=== PATIENT | male | born 1975 | race Caucasian/White ===

== ENCOUNTER 2016-11-29 16:22 | Emergency (ER) | payer SELFPAY ==
[~2016-11-29] VITALS: Ht 172.7 cm; Wt 90.7 kg
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
[2016-11-29 18:33] VITALS: BP 133/79
--- OUTSIDE RECORDS SUMMARY | 2016-12-22 06:26 | External Medical Summary Rpt ---
Author Author , PHUONG Organization [facility] Address Unknown Phone [email or web address] Care Team Providers Care Senior Maintenance Technician Name Role Phone KYRGYZ AMBULETTE Unavailable Unavailable AND AMBUL, KYRGYZ AMBULETTE AND AMBUL BEINEKE HANY, BEINEKE Unavailable Unavailable HANY ROYAL L, ROYAL L Unavailable Unavailable FAUGHN WONG, FAUGHN Unavailable Unavailable WONG BINH JOANNA, BINH Unavailable Unavailable [facility] Unavailable Unavailable [facility], [facility], Unavailable Unavailable [facility] Unavailable Unavailable [facility], [facility] SHASHI KEVIN, SHASHI KEVIN Unavailable Unavailable [facility] Unavailable Unavailable [facility], [facility] Unavailable Unavailable [facility], [facility] Unavailable Unavailable INTERNAL MED, [facility] PERRY OSCAR, PERRY Unavailable Unavailable [facility] Unavailable Unavailable SERVICES, [facility] Unavailable Unavailable MED[facility], [facility], Unavailable Unavailable [facility], [facility], [facility] T[facility]MY BAR, TAMMY Unavailable Unavailable [facility] PETTEY JAM, PETTEY Unavailable Unavailable JAM PORNOY ANITA, PORNOY Unavailable Unavailable ANITA STEVE PETERS Unavailable Unavailable [facility] Unavailable Unavailable [facility], [facility] Unavailable Unavailable [facility], [facility] UNIQUE ANNAMARIE, UNIQUE Unavailable Unavailable ANNAMARIE STEYN PIE, STEYN PIE Unavailable Unavailable [facility], Unavailable Unavailable [facility], [facility] Unavailable Unavailable SUZIE JOANNA, SUZIE Unavailable Unavailable [facility] CHATMAN RAY, CHATMAN Unavailable Unavailable RAY CHATMAN RAY, CHATMAN Unavailable Unavailable RAY ALBA CURTIS, ALBA Unavailable Unavailable JR CURTIS Purpose Continuity of Care Document - 05-29-2011 through 2016 Problems Code Diagnosis DOS Provider Status [id number] DISPL FX 02-12-2015 [facility] MALLEOLUS IMAGING ASS LT FIB SUBS CLOS FX RTN [id number] OTH FX 02-12-2015 [facility] LOWER LT INC FIB SUBSQT CLOS RTN HEAL [id number] OTH FX 02-12-2015 [facility] FIB SUBSQT CLOS FX DLAY 35088 CLOSED 11-28-2014 [facility] FRACTURE OF HOME MEDICAL UNSPECIFIED EQUIPME PART OF FIBULA V5416 AFTERCARE 11-28-2014 [facility]ALING [facility] TRAUMATIC INC FRACTURE LOWER LEG 60808 DEHYDRATION 10-29-2014 [facility] 586 UNSPECIFIED 10-29-2014 [facility] FAILURE INTERNAL MED 7802 SYNCOPE AND 10-29-2014 [facility] COLLAPSE DOW INTERNAL MED 8248 UNSPECIFIED 10-25-2014 [facility]OS[facility] PHYSICIANS FRACTURE OF GROUP ANKLE 60720 PAIN IN 10-22-2014 [facility], MEDICAL ANKLE AND IMAGING ASS FOOT 8242 CLOSED 10-22-2014 [facility] FRACTURE OF PHYSICIANS, LATERAL PLLC MALLEOLUS 5849 ACUTE 10-03-2014 [facility], FAILURE PLLC UNSPECIFIED 9925 HEAT 10-03-2014 [facility] EXHAUSTION, PHYSICIANS, PLLC UNSPECIFIED 8730 OPEN WOUND 09-06-2014 [facility]P [facility] WITHOUT INC MENTION COMPLICATIO N V5832 ENCOUNTER 09-06-2014 [facility] FOR REMOVAL MEM HOSP OF SUTURES INC 61670 HEAD 09-01-2014 [facility] JOANNA INJURY, UNSPECIFIED 77797 CLOSED 07-14-2011 [facility] UNSPEC PART LOWER END HUMERUS V5489 OTHER 07-14-2011 [facility]ARE [facility] V6709 FOLLOW-UP 07-14-2011 [facility] FOLLOWING OTHER SURGERY 66436 PAIN IN 06-17-2011 [facility] MEDICAL V571 OTHER 06-17-2011 [facility] 49135 OPEN 05-31-2011 [facility] OF SERV OLECRANON [facility] PROCESS OF ULNA E9889 INJURY 05-31-2011 [facility] UNSPEC SERV MEANS UNDET [facility] ACC/PRPOSLY INFLICTED V5409 OTH 05-31-2011 [facility] AFTER[facility]ARE [facility] INVOLVING [facility] INTERNAL FIXATION DEVICE 75057 OTHER&UNSPE 05-30-2011 [facility] OPEN SERV FRACTURES [facility] PROXIMAL END ULNA V537 FITTING AND 05-30-2011 [facility] ADJUSTMENT [facility] OF [facility] ORTHOPEDIC DEVICE 95322 CLOSED 05-29-2011 [facility] FRACTURE OF EMERGENCY OLECRANON SERVICES PROCESS OF ULNA 51686 CLOSED 05-29-2011 CHATMAN RAY FRACTURE OF CORONOID PROCESS OF ULNA 44520 OTHER&UNSPE 05-29-2011 [facility] CLOSED SERV FRACTURES [facility] PROXIMAL END ULNA 30768 CLOSED 05-29-2011 CHATMAN RAY FRACTURE OF HEAD OF RADIUS 9592 INJURY 05-29-2011 [facility] OTHER&UNSPE SERV CIFIED [facility] SHOULDER&UP PER ARM E8849 OTHER 05-29-2011 [facility] ACCIDENTAL [facility] FALL FROM [facility] ONE LEVEL TO ANOTHER Procedures Procedure DOS Code Location Performer Comment RADEX 31980 [facility] ANKLE [facility] COMPLETE INC INC MINIMUM 3 VIEWS RADEX 08454 [facility] ANKLE [facility] COM[facility]TE INC INC MINIMUM 3 VIEWS RADEX 29069 [facility] ANKLE 5 [facility] COMPLETE INC INC MINIMUM 3 VIEWS WALKING L4360 [facility] ENNIS BOOT 5 HOME HOME PNEUMATC MEDICAL MEDICAL &/ VACUUM EQUIPME EQUIPME PREFAB CUSTM FIT RADEX 46167 [facility] ANKLE 5 [facility] COMPLETE INC INC MINIMUM 3 VIEWS APPLICATI 30204 [facility] ON SHORT 5 PHYSICIAN JAM LEG CAST S GROUP BELOW KNEE-TOE CAST Q4038 [facility] SUPPLIES 5 PHYSICIAN JAM SHORT LEG S GROUP CAST ADULT FIBERGLAS S CAST Q4038 [facility] PETTE[facility] SUPPLIES 5 PHYSICIAN JAM SHORT LEG S GROUP CAST ADULT FIBERGLAS S APPLICATI 18546 [facility] ON SHORT 5 PHYSICIAN JAM LEG CAST S GROUP BELOW KNEE-TOE RADEX 53151 [facility] ANKLE 5 [facility] COMPLETE INC INC MINIMUM 3 VIEWS COLLECTIO 68062 [facility] N VENOUS 5 [facility] BLOOD INC INC VENIPUNCT URE BASIC 81568 [facility] METABOLIC 5 [facility] PANEL INC INC CALCIUM TOTAL CAST Q4046 [facility] SUPPLIES 5 PHYSICIAN JAM SHORT LEG S GROUP SPLINT ADULT FIBERGLAS S CLTX DSTL 65580 [facility] FIBULAR 5 PHYSICIAN JAM FX LAT S GROUP MALLS W/O MANJ RADIOLOGI 51222 [place] BEINEKE C 5 MEDICAL HANY EXAMINATI IMAGING ON TIBIA ASS & FIBULA 2 VIEWS RADEX 90830 ANDERS RODRIGUEZ ANKLE 5 MEDICAL HANY COMPLETE IMAGING MINIMUM 3 ASS VIEWS SIMPLE 73079 [facility] REPAIR 5 [facility] SCALP/NEC INC INC K/AX/GURVINDER T/TRUNK 2.5CM/< UNCLASSIF J3490 [facility] IED DRUGS 5 MEM HOS[facility]OS[facility] INC INC RADEX 95332 UNIVERS UNIVERS ELBOW 2 Y Y COMPLETE [facility] MINIMUM 3 VIEWS THERAPEUT 25939 MEADOWVIE MEADOWVIE IC PX 1/> 2 W W AREAS REGIONAL REGIONAL EACH 15 MEDICAL MEDICAL MIN EXERCISES PHYSICAL 68366 MEADOWVIE MEADOWVIE THERAPY 2 W W EVALUATIO REGIONAL [place] [address] COMPA CHATMAN RADIAL 2 BONIFACIO HEAD/NECK FRACTURE OPEN 99100 COMPA CHATMAN TREATMENT 2 BONIFACIO ULNAR FRACTURE PROXIMAL END ANES 68397 [place] ZAYRA PIE OPEN/SURG 2 MEDICAL SERV ARTHROSCO FOUND[facility] PIC ELBOW PROC NOS RADEX 77655 [place] SHASHI KEVIN ELBOW 2 MEDICAL COMPLETE SERV MINIMUM 3 FOUNDATIO VIEWS DBRDMT 18410 COMPA CHATMAN FX&/DISLC 2 BONIFAC[place] SUBQ T/[place] [address] COMPA CHATMAN MONTEGGIA 2 BONIFACIO FRACTURE DISLOCATI ON ELBOW CT UPPER 56859 [place] UNIQUE EXTREMITY 2 MEDICAL ANNAMARIE W/O SERV CONTRAST [facility] MATERIAL RADEX 02403 [place] SUZIE ELBOW 2 MEDICAL JOANNA COMPLETE SERV MINIMUM 3 FOUNDATIO VIEWS RADEX 11298 [place] PAWLEY ELBOW 2 MEDICAL BAR COMPLETE SERV MINIMUM 3 FOUNDATIO VIEWS N RADEX 84717 [place] TAMMY HUMERUS 2 MEDICAL BAR MINIMUM 2 SERV VIEWS FOUNDATIO N RADEX 81852 [place] TAMMY FOREARM 2 2 MEDICAL BAR VIEWS SERV FOUNDATIO N APPLICATI 13473 [facility] BASHIRVERONICAChristy ON LONG 2 EMERGENCY ANITA ARM SERVICES SPLINT SHOULDER HAND DBRDMT 57026 COMPA CHATMAN FX&/DISLC 2 BONIFACIO SUBQ T/M/F BONE ANES 54897 [place] REBEL TIFFANI ARTHRS/EN 2 MEDICAL DSCPY SERV DSTL FOUNDAT[facility] RADIUS ULNA/WRIS T/HAND RADEX 78050 [place] TAMMY ELBOW 2 2 MEDICAL BAR VIEWS SERV FOUNDATIO N GROUND A0425 KYRGYZ KYRGYZ MILEAGE 2 AMBULETTE AMBULETTE PER AND AND STATUTE AMBUL AMBUL MILE Encounters Encounter Start End Date Code Location Performer Type Date [facility] DENA - 5 5 [facility] OUTPATIEN [facility] OFFICE 84398 [facility] OUTPATIEN 5 5 PHYSICIAN DANNI VISIT S GROUP 15 MINUTES HOSPITAL DENA - 5 5 [facility] DE[facility] - 5 5 [facility] DENA [facility] 5 5 [facility] - 5 5 [facility] DE[facility] - 5 5 [facility] INITIAL 11161 [facility] 5 5 [facility] INTERNAL MEDICINE MED NEW PATIENT 40-64YRS EMERGENCY 90077 TIM AMADOR 5 5 PHYSICIAN OSCAR ROJAS S, [facility] T VISIT HIGH/URGE NT SEVERITY EMERGENCY 08067 TMI Chu 5 5 PHYSICIAN BOB S, [facility] T VISIT HIGH/URGE NT SEVERITY HOSPITAL DENA - 5 5 [facility] OUTPATI[facility] OFFICE 05252 [facility] OUTPATIEN 5 5 MEM H[facility] T VISIT INC 10 MINUTES HOSPITAL DENA - 5 5 [facility] OUTPATIEN [facility] EMERGENCY 14621 BINH SULLIVAN 5 5 JOANNA JUDITH [facility] T VISIT MODERATE SEVERITY EMERGENCY 29335 DE[facility] 5 5 [facility] T VISIT LOW/MODER SEVERITY [facility] UNIVERSIT - 2 2 Y [facility] - 2 2 W [facility] T MEDICAL EMERGENCY 67146 JOEL WILLIS JR DEPT 2 2 MEDICAL KIRSTEN VISIT SERV HIGH FOUNDATIO SEVERITY& THREAT FUNCJ
--- OUTSIDE RECORDS SUMMARY | 2016-12-22 06:26 | External Medical Summary Rpt ---
Author Author , PHUONG Organization PHUONG Address Unknown Phone [email or web address] Care Team Providers Care Melt House Drag Operator Name Role Phone TURKISH AMBULETTE Unavailable Unavailable AND AMBUL, TURKISH AMBULETTE AND AMBUL RAMÓN FRA, RAMÓN Unavailable Unavailable FRA BEINEKE HANY, BEINEKE Unavailable Unavailable HANY ROYAL L, ROYAL L Unavailable Unavailable JACOBS ALL, JACOBS ALL Unavailable Unavailable CROUCH MARISOL, CROUCH Unavailable Unavailable MARISOL LILLIE TENNILLE, Unavailable Unavailable LILLIE TENNILLE FAUGHN WONG, FAUGHN Unavailable Unavailable WONG BINH JOANNA, BINH Unavailable Unavailable [facility] Unavailable Unavailable INC, [facility], Unavailable Unavailable [facility] Unavailable Unavailable IMAGING [facility], [facility] SHASHI KEVIN, SHASHI KEVIN Unavailable Unavailable [facility] Un[facility], [facility] Un[facility], [facility] Unavailable Unavailable INTERNAL MED, [facility] INTERNAL MED PERRY OSCAR, PERRY Unavailable Unavailable OSCAR [facility] Unavailable Unavailable SERVICES, [facility] Unavailable Unavailable MEDICAL, [facility], Unavailable Unavailable PLL, [facility], [facility] PAWLEY BAR, PAWLEY Unavailable Unavailable BAR PETTEY JAM, PETTEY Unavailable Unavailable JAM PORNOY ANITA, PORNOY Unavailable Unavailable ANITA STEVE PETERS Unavailable Unavailable [facility] Unavailable Unavailable [facility], [facility] Unavailable Unavailable [facility], [facility] UNIQUE ANNAMARIE, UNIQUE Unavailable Unavailable ANNAMARIE STEYN PIE, STEYN PIE Unavailable Unavailable [facility], Unavailable Unavailable [facility], USERY AND Unavailable Unavailable SUZIE JOANNA, SUZIE Unavailable Unavailable JOANNA CHATMAN RAY, CHATMAN Unavailable Unavailable RAY CHATMAN RAY, CHATMAN Unavailable Unavailable RAY YOUNG JR CURTIS, YOUNG Unavailable Unavailable JR KIRSTEN Purpose Continuity of Care Document - 05-29-2011 through 2016 Problems Code Diagnosis DOS Provider Status [id number] DISPL FX 02-12-2015 [place] MEDICAL MALLEOLUS IMAGING ASS LT FIB SUBS CLOS FX RTN [id number] OTH FX 02-12-2015 [facility] LOWER LT INC FIB SUBSQT CLOS RTN HEAL [id number] OTH FX 02-12-2015 [facility] UPPER & PHYSICIANS LOWER LT GROUP FIB SUBSQT CLOS FX DLAY 18564 CLOSED 11-28-2014 [facility] FRACTURE OF HOME MEDICAL UNSPECIFIED EQUIPME PART OF FIBULA V5416 AFTERCARE 11-28-2014 [facility]ING [facility] TRAUMATIC INC FRACTURE LOWER LEG 95514 DEHYDRATION 10-29-2014 [place] ANTHONY INTERNAL MED 586 UNSPECIFIED 10-29-2014 [place] [facility] FAILURE INTERNAL MED 7802 SYNCOPE AND 10-29-2014 [place] COLLAPSE ANTHONY INTERNAL MED 8248 UNSPECIFIED 10-25-2014 [facility] CLOSED PHYSICIANS FRACTURE OF GROUP ANKLE 48930 PAIN IN 10-22-2014 [place] JOINT, MEDICAL ANKLE AND IMAGING ASS FOOT 8242 CLOSED 10-22-2014 TIM FRACTURE OF PHYSICIANS, LATERAL PLLC MALLEOLUS 5849 ACUTE 10-03-2014 [facility], FAILURE PLLC UNSPECIFIED 9925 HEAT 10-03-2014 [facility] EXHAUSTION, PHYSICIANS, PLLC UNSPECIFIED 8730 OPEN WOUND 09-06-2014 [facility]P [facility] WITHOUT INC MENTION COMPLICATIO N V5832 ENCOUNTER 09-06-2014 [facility] FOR REMOVAL [facility] HOS[facility] OF SUTURES INC 04599 HEAD 09-01-[address] [facility] JOANNA INJURY, UNSPECIFIED 82270 CLOSED 07-14-2011 [facility] UNSPEC PART LOWER END HUMERUS V5489 OTHER 07-14-2011 [place] [facility] AFTERCARE [facility]OUND[facility] V6709 FOLLOW-UP 07-14-2011 [facility] FOLLOWING OTHER SURGERY 04107 PAIN IN 06-17-2011 [facility] JOINT, REGIONAL FOREARM MEDICAL V571 OTHER 06-17-2011 [place] PHYSICAL REGIONAL THERAPY MEDICAL 69441 OPEN 05-31-2011 [place] [facility] FRACTURE OF SERV OLECRANON FOUNDATIO PROCESS OF ULNA E9889 INJURY 05-31-2011 [place] [facility] UNSPEC SERV MEANS UNDET F[facility]AT[facility] ACC/PRPOSLY INFLICTED V5409 OTH 05-31-2011 [place] [facility] AFTERCARE SERV INVOLVING [facility] INTERNAL FIXATION DEVICE 56375 OTHER&UNSPE 05-30-2011 [place] [facility] C OPEN SERV FRACTURES [facility] PROXIMAL END ULNA V537 FITTING AND 05-30-2011 [place] [facility] ADJUSTMENT SERV OF [facility]IO ORTHOPEDIC DEVICE 27866 CLOSED 05-29-2011 [facility] FRACTURE OF EMERGENCY OLECRANON SERVICES PROCESS OF ULNA 33823 CLOSED 05-29-2011 CHATMAN RAY FRACTURE OF CORONOID PROCESS OF ULNA 11901 OTHER&UNSPE 05-29-2011 [place] [facility] CLOSED SERV FRACTURES [facility] PROXIMAL END ULNA 96942 CLOSED 05-29-2011 CHATMAN RAY FRACTURE OF HEAD OF RADIUS 9592 INJURY 05-29-2011 [place] MEDICAL OTHER&UNSPE SERV CIFIED [facility]ATION SHOULDER&UP PER ARM E8849 OTHER 05-29-2011 [place] [facility] ACCIDENTAL SERV FALL FROM [facility]OUNDAT[facility] ONE LEVEL TO ANOTHER S01.81XA LACERATION W/O FOREIGN BODY OF OTH PART OF HEAD, INIT ENCNTR S82.63XA DISP FX OF LATERAL MALLEOLUS OF UNSP FIBULA, INIT S82.899A OTH FRACTURE OF UNSP LOWER LEG, INIT FOR CLOS FX Procedures Procedure DOS Code Location Performer Comment RADEX 72194 [place] LILLIE ANKLE 5 MEDICAL [place] COMPLETE IMAGING MINIMUM 3 ASS VIEWS RADEX 27182 [place] JACOBS ALL ANKLE 5 MEDICAL COMPLETE IMAGING MINIMUM 3 ASS VIEWS RADEX 68238 [facility] FERNANDES ANKLE 5 [facility] COMPLETE INC INC MINIMUM 3 VIEWS WALKING L4360 [facility] NENIS BOOT 5 HOME HOME PNEUMATC MEDICAL MEDICAL &/ VACUUM EQUIPME EQUIPME PREFAB CUSTM FIT CAST Q4038 [facility] PETTEY SUPPLIES 5 PHYSICIAN JAM SHORT LEG S GROUP CAST ADULT FIBERGLAS S APPLICATI 63605 [facility] PETTE[facility] ON SHORT 5 PHYSICIAN JAM LEG CAST S GROUP BELOW KNEE-TOE RADEX 56108 [place] JACOBS ALL ANKLE 5 MEDICAL COMPLETE IMAGING MINIMUM 3 ASS VIEWS RADEX 59265 [place] JACOBS ALL ANKLE 5 MEDICAL COMPLETE IMAGING MINIMUM 3 ASS VIEWS CAST Q4038 [facility] PETTEY SUPPLIES 5 PHYSICIAN JAM SHORT LEG S GROUP CAST ADULT FIBERGLAS S APPLICATI 33204 [facility] PETTEY ON SHORT 5 PHYSICIAN JAM LEG CAST S GROUP BELOW KNEE-TOE COLLECTIO 66911 [facility] FERNANDES N VENOUS 5 [facility] BLOOD INC INC VENIPUNCT URE BASIC 89365 [facility] METABOLIC 5 [facility] PANEL INC INC CALCIUM TOTAL CAST Q4046 [facility] PETTEY SUPPLIES 5 PHYSICIAN DANNI SHORT LEG S GROUP SPLINT ADULT FIBERGLAS S CLTX DSTL 07624 [facility] PETTEY FIBULAR 5 PHYSICIAN DANNI FX LAT S GROUP MALLS W/O MANJ RADIOLOGI 36016 [facility] RODRIGUEZ C 5 MEDICAL HANY EXAMINATI IMAGING ON TIBIA ASS & FIBULA 2 VIEWS RADEX 79792 [facility] RODRIGUEZ ANKLE 5 MEDICAL HANY COMPLETE IMAGING MINIMUM 3 ASS VIEWS SIMPLE 32697 [facility] REPAIR 5 [facility] SCALP/NEC INC INC K/AX/GURVINDER T/TRUNK 2.5CM/< UNCLASSIF J3490 [facility] IED DRUGS 5 [facility] INC INC RADEX 23467 JOEL RAMÓN ELBOW 2 MEDICAL FRA COMPLETE SERV MINIMUM 3 FOUNDATIO VIEWS THERAPEUT 02657 enModus MEADOWDole Tian IC PX 1/> 2 W W AREAS REGIONAL REGIONAL EACH 15 MEDICAL MEDICAL MIN EXERCISES PHYSICAL 67929 MEADOKarisma Kidz MEADOWVIE THERAPY 2 W W EVALUATIO REGIONAL [place] [address] COMPA CHATMAN MONTEGGIA 2 BONIFACIO FRACTURE DISLOCATI ON ELBOW DBRDMT 24296 COMPA CHATMAN FX&/DISLC 2 BONIFACIO SUBQ T/M/F BONE RADEX 02837 [place] SHASHI KEVIN ELBOW 2 MEDICAL COMPLETE SERV MINIMUM 3 [place] [address] COMPA CHATMAN RADIAL 2 BONIFACIO HEAD/NECK FRACTURE OPEN 24041 CHATMAN COMPA TREATMENT 2 BONIFACIO ULNAR FRACTURE PROXIMAL END ANES 46149 [place] ZAYRA PIE OPEN/SURG 2 MEDICAL SERV ARTHROSCO FOUNDATIO PIC ELBOW PROC NOS RADEX 30782 [place] SUZIE ELBOW 2 MEDICAL JOANNA COMPLETE SERV MINIMUM [address] UPPER 85259 [place] UNIQUE EXTREMITY 2 MEDICAL ANNAMARIE W/O SERV CONTRAST FOUNDATIO MATERIAL ANES 37469 [place] REBEL TIFFANI ARTHRS/EN 2 MEDICAL DSCPY SERV DSTL FOUNDATIO RADIUS ULNA/WRIS T/HAND RADEX 21641 JOEL MUNOZ ELBOW 2 MEDICAL BAR COMPLETE SERV MINIMUM 3 FOUNDATIO VIEWS N DBRDMT 14094 COMPA CHATMAN FX&/DISLC 2 BONIFACIO SUBQ T/M/F BONE GROUND A0425 TURKISH TURKISH MILEAGE 2 AMBULETTE AMBULETTE PER AND AND STATUTE AMBUL AMBUL MILE APPLICATI 25377 [facility] MEJIA ON LONG 2 EMERGENCY ANITA ARM SERVICES SPLINT SHOULDER HAND RADEX 58016 JOEL MUNOZ HUMERUS 2 MEDICAL BAR MINIMUM 2 SERV VIEWS FOUNDATIO N RADEX 52483 MIKO CROUCH FOREARM 2 2 [facility] VIEWS RADEX 64279 MIKO CROUCH ELBOW 2 2 [facility] VIEWS Encounters Encounter Start End Date Code Location Performer Type Date OFFICE 80795 [facility] HUGO SAM 5 5 PHYSICIAN DANNI T VISIT S GROUP 15 MINUTES HOSPITAL DENA - 5 5 [facility] DE[facility] - 5 5 [facility] - 5 5 [facility] - 5 5 [facility] - 5 5 [facility] - 5 5 [facility] 90861 [place]ERY AND PREVENTIV 5 5 [facility] INTERNAL MEDICINE MED NEW PATIENT 40-64YRS EMERGENCY 70457 TIM AMADOR 5 5 PHYSICIAN OSCAR Ho [facility] T VISIT HIGH/URGE NT SEVERITY EMERGENCY 48427 TIM Chu 5 5 PHYSICIAN BOB Ho [facility] T VISIT HIGH/URGE NT SEVERITY OFFICE 28706 [facility] FUENTESEN 5 5 MEM HOS[facility] T VISIT INC 10 MINUTES HOSPITAL DENA - 5 5 [facility] 5 5 [facility] 30173 BINH SULLIVAN 5 5 JOANNA [facility] VISIT MODERATE SEVERITY EMERGENCY 88101 [facility] 5 5 [facility] VISIT LOW/MODER SEVERITY [facility] UNIVERSIT - 2 2 [facility] 2 [facility] MEDICAL EMERGENCY 56823 JOEL WILLIS JR DEPT 2 2 MEDICAL KIRSTEN VISIT SERV HIGH FOUNDATIO SEVERITY& THREAT FUNJ
--- OUTSIDE RECORDS SUMMARY | 2016-12-22 06:26 | External Medical Summary Rpt ---
Author Author , PHUONG Organization [facility] Address Unknown Phone [email or web address] Care Team Providers Care Barber Or Beauty Shop Manager Name Role Phone GUAMANIAN AMBULETTE Unavailable Unavailable AND AMBUL, GUAMANIAN AMBULETTE AND AMBUL BEINEKE HNAY, BEINEKE Unavailable Unavailable HANY ROYAL L, ROYAL L Unavailable Unavailable FAUGHN WONG, FAUGHN Unavailable Unavailable WONG BINH JOANNA, BINH Unavailable Unavailable [facility] Un[facility] Unavailable INC, [facility], Unavailable Unavailable [facility] Unavailable Unavailable IMAGING ASS, [facility] SHASHI KEVIN, SHASHI KEVIN Unavailable Unavailable [facility] Un[facility]available [facility] Un[facility], [facility] Unavailable Unavailable INTERNAL MED, [facility] PERRY OSCAR, PERRY Unavailable Unavailable [facility] Unavailable Unavailable SERVICES, [facility] Unavailable Unavailable MEDICAL, [facility] MEDICAL [facility], Unavailable Unavailable [facility], [facility], [facility] TAM[facility] BAR, TAMMY Unavailable Unavailable BAR PETTEY JAM, PETTEY Unavailable Unavailable JAM PORNOY ANITA, PORNOY Unavailable Unavailable ANITA STEVE PETERS Unavailable Unavailable [facility] Unavailable Unavailable [facility], [facility] Unavailable Unavailable [facility], [facility] UNIQUE ANNAMARIE, UNIQUE Unavailable Unavailable ANNAMARIE STEYN PIE, STEYN PIE Unavailable Unavailable [facility], Unavailable Unavailable [facility] USERY AND, USERY AND Unavailable Unavailable SUZIE JOANNA, SUZIE Unavailable Unavailable JOANNA CHATMAN RAY, CHATMAN Unavailable Unavailable RAY CHATMAN RAY, CHATMAN Unavailable Unavailable RAY ALBA CURTIS, ALBA Unavailable Unavailable JR CURTIS Purpose Continuity of Care Document - 05-29-2011 through 2016 Problems Code Diagnosis DOS Provider Status [id number] DISPL FX 02-12-2015 [facility] MALLEOLUS IMAGING ASS LT FIB SUBS CLOS FX RTN [id number] OTH FX 02-12-2015 [facility] LOWER LT INC FIB SUBSQT CLOS RTN HEAL [id number] OTH FX 02-12-2015 [facility] UPPER & PHYSICIANS LOWER LT GROUP FIB SUBSQT CLOS FX DLAY 05286 CLOSED 11-28-2014 [facility] FRACTURE OF HOME MEDICAL UNSPECIFIED EQUIPME PART OF FIBULA V5416 AFTERCARE 11-28-2014 [facility] TRAUMATIC INC FRACTURE LOWER LEG 98562 DEHYDRATION 10-29-2014 [place] [facility] INTER[facility] MED 586 UNSPECIFIED 10-29-2014 [place] [facility] FAILURE INTERNAL MED 7802 SYNCOPE AND 10-29-2014 [place] COLLAPSE [place] INTERNAL MED 8248 UNSPECIFIED 10-25-2014 [facility] CLOSED PHYSICIANS FRACTURE OF GROUP ANKLE 92641 PAIN IN 10-22-2014 [place] JOINT, MEDICAL ANKLE AND IMAGING ASS FOOT 8242 CLOSED 10-22-2014 TIM FRACTURE OF PHYSICIANS, LATERAL PLLC MALLEOLUS 5849 ACUTE 10-03-2014 [facility]ANS, FAILURE PLLC UNSPECIFIED 9925 HEAT 10-03-2014 [facility] EXHAUSTION, PHYSICIANS, PLLC UNSPECIFIED 8730 OPEN WOUND 09-06-2014 [facility] WITHOUT INC MENTION COMPLICATIO N V5832 ENCOUNTER 09-06-2014 [facility] FOR REMOVAL [facility] HOS[facility] OF SUTURES INC 43366 HEAD 09-01-2014 [facility] JOANNA INJURY, UNSPECIFIED 50086 CLOSED 07-14-2011 [facility] UNSPEC PART LOWER END HUMERUS V5489 OTHER 07-14-2011 [place] [facility]OP[facility] SERV AFTERCARE FOUNDATIO V6709 FOLLOW-UP 07-14-2011 [facility] FOLLOWING OTHER SURGERY 23279 PAIN IN 06-17-2011 [facility] JOINT, REGIONAL FOREARM MEDICAL V571 OTHER 06-17-2011 [place] [facility]AL THERAPY MEDICAL 05098 OPEN 05-31-2011 [place] [facility] FRACTURE OF SERV OLECRANON FOUNDATIO PROCESS OF ULNA E9889 INJURY 05-31-2011 [place] MEDICAL UNSPEC SERV MEANS UNDET FOUNDATIO ACC/PRPOSLY INFLICTED V5409 OTH 05-31-2011 [place] MEDICAL AFTERCARE SERV INVOLVING FOUNDATIO INTERNAL FIXATION DEVICE 86283 OTHER&UNSPE 05-30-2011 [place] MEDICAL C OPEN SERV FRACTURES FOUNDATIO PROXIMAL END ULNA V537 FITTING AND 05-30-2011 [place] MEDICAL ADJUSTMENT SERV OF FOUNDATIO ORTHOPEDIC DEVICE 69129 CLOSED 05-29-2011 [facility] FRACTURE OF EMERGENCY OLECRANON SERVICES PROCESS OF ULNA 84783 CLOSED 05-29-2011 CHATMAN RAY FRACTURE OF CORONOID PROCESS OF ULNA 72308 OTHER&UNSPE 05-29-2011 [place] MEDICAL C CLOSED SERV FRACTURES [facility] PROXIMAL END ULNA 20116 CLOSED 05-29-2011 CHATMAN RAY FRACTURE OF HEAD OF RADIUS 9592 INJURY 05-29-2011 [place] MEDICAL OTHER&UNSPE SERV CIFIED [facility] SHOULDER&UP PER ARM E8849 OTHER 05-29-2011 [place] MEDICAL ACCIDENTAL SERV FALL FROM FOUNDATIO ONE LEVEL TO ANOTHER Procedures Procedure DOS Code Location Performer Comment RADEX 92303 [facility] F[facility]NAND[facility] ANKLE 5 [facility] H[facility] COMPLETE INC INC MINIMUM 3 VIEWS RADEX 78000 [facility] ANKLE 5 [facility] H[facility] COMPLETE INC INC MINIMUM 3 VIEWS RADEX 18055 [facility] ANKLE 5 [facility] H[facility] COMPLETE INC INC MINIMUM 3 VIEWS WALKING L4360 [facility] ENNIS BOOT 5 HOME HOME PNEUMATC MEDICAL MEDICAL &/ VACUUM EQUIPME EQUIPME PREFAB CUSTM FIT RADEX 01145 [facility] F[facility] ANKLE 5 MEM HOS[facility] COMPLETE INC INC MINIMUM 3 VIEWS APPLICATI 50119 [facility] ON SHORT 5 PHYSICIAN JAM LEG CAST S GROUP BELOW KNEE-TOE CAST Q4038 [facility] SUPPLIES 5 PHYSICIAN JAM SHORT LEG S GROUP CAST ADULT FIBERGLAS S CAST Q4038 [facility] SUPPLIES 5 PHYSICIAN JAM SHORT LEG S GROUP CAST ADULT FIBERGLAS S APPLICATI 72178 [facility] PETTE[facility] ON SHORT 5 PHYSICIAN JAM LEG CAST S GROUP BELOW KNEE-TOE RADEX 08542 [facility] ANKLE 5 [facility] HOS[facility] COMPLETE INC INC MINIMUM 3 VIEWS COLLECTIO 85405 [facility] FERNAND[facility] N VENOUS 5 MEM H[facility] BLOOD INC INC VENIPUNCT URE BASIC 08409 [facility] F[facility] METABOLIC 5 [facility] H[facility] HOS[facility] PANEL INC INC CALCIUM TOTAL CAST Q4046 [facility] SUPPLIES 5 PHYSICIAN JAM SHORT LEG S GROUP SPLINT ADULT FIBERGLAS S CLTX DSTL 49715 [facility] PETTEY FIBULAR 5 PHYSICIAN JAM FX LAT S GROUP MALLS W/O MANJ RADIOLOGI 75743 [place] BEINEKE C 5 MEDICAL HANY EXAMINATI IMAGING ON TIBIA ASS & FIBULA 2 VIEWS RADEX 19816 ANDERS RODRIGUEZ ANKLE 5 MEDICAL HANY COMPLETE IMAGING MINIMUM 3 ASS VIEWS SIMPLE 46455 [facility] REPAIR 5 [facility] HOS[facility] SCALP/NEC INC INC K/AX/GURVINDER T/TRUNK 2.5CM/< UNCLASSIF J3490 [facility] F[facility]ND[facility] IED DRUGS 5 MEM HOS[facility]OS[facility] INC INC RADEX 93257 [facility] ELBOW 2 Y Y COMPLETE [facility] MINIMUM 3 VIEWS THERAPEUT 62822 MEADOWVIE MEADOWVIE IC PX 1/> 2 W W AREAS REGIONAL REGIONAL EACH 15 MEDICAL MEDICAL MIN EXERCISES PHYSICAL 37270 MEADOWVIE MEADOWVIE THERAPY 2 W W EVALUATIO REGION[place] [address] COMPA CHATMAN RADIAL 2 BONIFACIO HEAD/NECK FRACTURE OPEN 44960 COMPA CHATMAN TREATMENT 2 BONIFACIO ULNAR FRACTURE PROXIMAL END ANES 69970 [place] ZAYRA PIE OPEN/SURG 2 MEDICAL SERV ARTHROSCO FOUNDATIO PIC ELBOW PROC NOS RADEX 79415 [place] SHASHI KEVIN ELBOW 2 MEDICAL COMPLETE SERV MINIMUM 3 FOUNDATIO VIEWS DBRDMT 25356 COMPA CHATMAN FX&/DISLC 2 BONIFACIO SUBQ T/[place] [address] COMPA CHATMAN MONTEGGIA 2 BONIFACIO FRACTURE DISLOCATI ON ELBOW CT UPPER 09238 [place] UNIQUE EXTREMITY 2 MEDICAL ANNAMARIE W/O SERV CONTRAST FOUNDATIO MATERIAL RADEX 94708 [place] SUZIE ELBOW 2 MEDICAL JOANNA COMPLETE SERV MINIMUM 3 FOUNDATIO VIEWS RADEX 93291 [place] PAWLEY ELBOW 2 MEDICAL BAR COMPLETE SERV MINIMUM 3 FOUNDATIO VIEWS N RADEX 76740 [place] TAMMY HUMERUS 2 MEDICAL BAR MINIMUM 2 SERV VIEWS FOUNDATIO N RADEX 18410 [place] TAMMY FOREARM 2 2 MEDICAL BAR VIEWS SERV FOUNDATIO N APPLICATI 35390 FANY BASHIRVERONICAChristy ON LONG 2 EMERGENCY ANITA ARM SERVICES SPLINT SHOULDER HAND DBRDMT 50987 COMPA CHATMAN FX&/DISLC 2 BONIFACIO SUBQ T/M/F BONE ANES 79269 [place] REBEL TIFFANI ARTHRS/EN 2 MEDICAL DSCPY SERV DSTL FOUNDATIO RADIUS ULNA/WRIS T/HAND RADEX 91880 [place] TAMMY ELBOW 2 2 MEDICAL BAR VIEWS SERV FOUNDATIO N GROUND A0425 GUAMANIAN GUAMANIAN MILEAGE 2 AMBULETTE AMBULETTE PER AND AND STATUTE AMBUL AMBUL MILE Encounters Encounter Start End Date Code Location Performer Type Date [facility] DENA - 5 5 [facility] OUTPATIEN [facility] OFFICE 97940 [facility] OUTPATIEN 5 5 PHYSICIAN DANNI VISIT S GROUP 15 MINUTES HOSPITAL DENA - 5 5 [facility] DE[facility] - 5 5 [facility] - 5 5 [facility] DE[facility] - 5 5 [facility] OUTPATIEN [facility] DENA [facility] 5 5 [facility] OUTPATIEN [facility] INITIAL 49370 [place] USERY AND PREVENTIV 5 5 [facility] INTERNAL MEDICINE MED NEW PATIENT 40-64YRS EMERGENCY 80752 TIM AMADOR 5 5 PHYSICIAN OSCAR ROJAS S, [facility] T VISIT HIGH/URGE NT SEVERITY EMERGENCY 06598 TIM Chu 5 5 PHYSICIAN BOB S, [facility] T VISIT HIGH/URGE NT SEVERITY [facility]OSPITAL DENA - 5 5 [facility] OUTPATIEN [facility] OFFICE 27030 [facility] OUTPATIEN 5 5 MEM HOS[facility] T VISIT INC 10 MINUTES HOSPITAL DENA - 5 5 [facility] OUTPATIEN [facility] EMERGENCY 32211 BINH SULLIVAN 5 5 JOANNA [facility] T VISIT MODERATE SEVERITY EMERGENCY 38696 DENA 5 5 MEM HOSP [facility] T VISIT LOW/MODER SEVERITY [facility] UNIVERSIT - 2 2 Y [facility] - 2 2 [facility] T MEDICAL EMERGENCY 68908 JOEL WILLIS JR DEPT 2 2 MEDICAL KIRSTEN VISIT SERV HIGH FOUNDATIO SEVERITY& THREAT FUNCJ
--- OUTSIDE RECORDS SUMMARY | 2016-12-22 06:26 | External Medical Summary Rpt ---
Author Author , PHUONG Organization PHUONG Address Unknown Phone [email or web address] Care Team Providers Care Respite Worker Name Role Phone MALTESE AMBULETTE Unavailable Unavailable AND AMBUL, MALTESE AMBULETTE AND AMBUL RAMÓN FRA, RAMÓN Unavailable Unavailable FRA BEINEKE HANY, BEINEKE Unavailable Unavailable HANY ROYAL L, ROYAL L Unavailable Unavailable JACOBS ALL, JACOBS ALL Unavailable Unavailable CROUCH MARISOL, CROUCH Unavailable Unavailable MARISOL LILLIE TENNILLE, Unavailable Unavailable LILLIE TENNILLE FAUGHN WONG, FAUGHN Unavailable Unavailable WONG BINH JOANNA, BINH Unavailable Unavailable JO[facility]NA [facility] Un[facility] Un[facility], [facility], Unavailable Unavailable [facility] Unavailable Unavailable IMAGING [facility], [facility] SHASHI KEVIN, SHASHI KEVIN Unavailable Unavailable [facility] Un[facility], [facility] Un[facility], [facility] Unavailable Unavailable INTERNAL MED, [facility] PERRY OSCAR, PERRY Unavailable Unavailable [facility] Unavailable Unavailable SERVICES, [facility] Unavailable Unavailable MEDICAL, [facility], Unavailable Unavailable PLL, [facility], PAWLEY Unavailable Unavailable [facility] PETTEY JAM, PETTEY Unavailable Unavailable JAM PORNOY ANITA, PORNOY Unavailable Unavailable ANITA STEVE PETERS Unavailable Unavailable [facility] Unavailable Unavailable [facility], [facility] Unavailable Unavailable [facility], [facility] UNIQUE ANNAMARIE, UNIQUE Unavailable Unavailable ANNAMARIE STEYN PIE, STEYN PIE Unavailable Unavailable [facility], Unavailable Unavailable [facility], [facility]ERY AND Unavailable Unavailable SUZIE JOANNA, SUZIE Unavailable Unavailable JOANNA CHATMAN RAY, CHATMAN Unavailable Unavailable RAY CHATMAN RAY, CHATMAN Unavailable Unavailable RAY YOUNG JR CURTIS, YOUNG Unavailable Unavailable JR KIRSTEN Purpose Continuity of Care Document - 05-29-2011 through 2016 Problems Code Diagnosis DOS Provider Status [id number] DISPL FX 02-12-2015 [facility] LAT [facility]ICAL MALLEOLUS IMAGING ASS LT FIB SUBS CLOS FX RTN [id number] OTH FX 02-12-2015 [facility] LOWER LT INC FIB SUBSQT CLOS RTN HEAL [id number] OTH FX 02-12-2015 [facility] UPP[facility] & PHYSICIANS LOWER LT GROUP FIB SUBSQT CLOS FX DLAY 40349 CLOSED 11-28-2014 [facility] FRACTURE OF HOME MEDICAL UNSPECIFIED EQUIPME PART OF FIBULA V5416 AFTERCARE 11-28-2014 [facility]ALING [facility] TRAUMATIC INC FRACTURE LOWER LEG 19874 DEHYDRATION 10-29-2014 [facility] INTERNAL MED 586 UNSPECIFIED 10-29-2014 [facility] FAILURE INTERNAL MED 7802 SYNCOPE AND 10-29-2014 [facility] COLLAPSE LA [facility]ERKIN INTERNAL MED 8248 UNSPECIFIED 10-25-2014 [facility] CLOSED PHYSICIANS FRACTURE OF GROUP ANKLE 23756 PAIN IN 10-22-2014 [facility] JOINT, MEDICAL ANKLE AND IMAGING ASS FOOT 8242 CLOSED 10-22-2014 [facility] FRACTURE OF PHYSICIANS, LATERAL PLLC MALLEOLUS 5849 ACUTE 10-03-2014 [facility], FAILURE PLLC UNSPECIFIED 9925 HEAT 10-03-2014 [facility] EXHAUSTION, PHYSICIANS, PLLC UNSPECIFIED 8730 OPEN WOUND 09-06-2014 [facility] SCALP [facility] WITHOUT INC MENTION COMPLICATIO N V5832 ENCOUNTER 09-06-2014 [facility] FOR REMOVAL MEM [facility]OS[facility] OF SUTURES INC 00681 HEAD 09-01-2014 [facility] JOANNA INJURY, UNSPECIFIED 73242 CLOSED 07-14-2011 [facility] UNSPEC PART LOWER END HUMERUS V5489 OTHER 07-14-2011 [facility]ARE [facility] V6709 FOLLOW-UP 07-14-2011 [facility] FOLLOWING OTHER SURGERY 99089 PAIN IN 06-17-[facility]ICAL V571 OTHER 06-17-2011 [facility] MEDICAL 91788 OPEN 05-31-2011 [place] [facility] OF SERV OLECRANON [facility] PROCESS OF ULNA E9889 INJURY 05-31-2011 [facility] UNSPEC SERV MEANS UNDET [facility] ACC/PRPOSLY INFLICTED V5409 OTH 05-31-2011 [facility] AFTER[facility]ARE [facility] INVOLVING [facility] INTERNAL FIXATION DEVICE 27278 OTHER&UNSPE 05-30-2011 [facility] OPEN SERV FRACTURES [facility] PROXIMAL END ULNA V537 FITTING AND 05-30-2011 [facility] ADJUSTMENT SERV OF [facility] ORTHOPEDIC DEVICE 43670 CLOSED 05-29-2011 [facility] FRACTURE OF EMERGENCY OLECRANON SERVICES PROCESS OF ULNA 55501 CLOSED 05-29-2011 CHATMAN RAY FRACTURE OF CORONOID PROCESS OF ULNA 76017 OTHER&UNSPE 05-29-2011 [facility] CLOSED SERV FRACTURES [facility] PROXIMAL END ULNA 06450 CLOSED 05-29-2011 CHATMAN RAY FRACTURE OF HEAD OF RADIUS 9592 INJURY 05-29-2011 [facility] OTHER&UNSPE SERV CIFIED [facility]ATION SHOULDER&UP PER ARM E8849 OTHER 05-29-2011 [facility] ACCIDENTAL SERV FALL FROM [facility] ONE LEVEL TO ANOTHER S01.81XA LACERATION W/O FOREIGN BODY OF OTH PART OF HEAD, INIT ENCNTR S82.63XA DISP FX OF LATERAL MALLEOLUS OF UNSP FIBULA, INIT S82.899A OTH FRACTURE OF UNSP LOWER LEG, INIT FOR CLOS FX Procedures Procedure DOS Code Location Performer Comment RADEX 39249 [facility] LILLIE ANKLE 5 MEDICAL [place] COMPLETE IMAGING MINIMUM 3 ASS VIEWS RADEX 54093 [facility] JACOBS ALL ANKLE 5 MEDICAL COMPLETE IMAGING MINIMUM 3 ASS VIEWS RADEX 74076 [facility] FERNANDES ANKLE 5 [facility] COMPLETE INC INC MINIMUM 3 VIEWS WALKING L4360 [facility] ENNIS BOOT 5 HOME HOME PNEUMATC MEDICAL MEDICAL &/ VACUUM EQUIPME EQUIPME PREFAB CUSTM FIT CAST Q4038 [facility] PETTEY SUPPLIES 5 PHYSICIAN JAM SHORT LEG S GROUP CAST ADULT FIBERGLAS S APPLICATI 94372 [facility]TE[facility] ON SHORT 5 PHYSICIAN JAM LEG CAST S GROUP BELOW KNEE-TOE RADEX 77312 [facility] JACOBS ALL ANKLE 5 MEDICAL COMPLETE IMAGING MINIMUM 3 ASS VIEWS RADEX 91526 [facility] JACOBS ALL ANKLE 5 MEDICAL COMPLETE IMAGING MINIMUM 3 ASS VIEWS CAST Q4038 [facility] PETTEY SUPPLIES 5 PHYSICIAN JAM SHORT LEG S GROUP CAST ADULT FIBERGLAS S APPLICATI 99462 [facility] PET[facility] ON SHORT 5 PHYSICIAN JAM LEG CAST S GROUP BELOW KNEE-TOE COLLECTIO 44872 [facility] N VENOUS 5 [facility]OS[facility]OS[facility] BLOOD INC INC VENIPUNCT URE BASIC 55130 [facility] METABOLIC [address] [facility] PANEL INC INC CALCIUM TOTAL CAST Q4046 [facility] PETTEY SUPPLIES 5 PHYSICIAN DANNI SHORT LEG S GROUP SPLINT ADULT FIBERGLAS S CLTX DSTL 51511 [facility] PETTEY FIBULAR 5 PHYSICIAN DANNI FX LAT S GROUP MALLS W/O MANJ RADIOLOGI 95687 [facility] RODRIGUE[facility] C 5 MEDICAL HANY EXAMINATI IMAGING ON TIBIA ASS & FIBULA 2 VIEWS RADEX 00693 [facility] RODRIGUEZ ANKLE 5 MEDICAL HANY COMPLETE IMAGING MINIMUM 3 ASS VIEWS SIMPLE 93172 [facility] REPAIR [address] [facility] SCALP/NEC INC INC K/AX/GURVINDER T/TRUNK 2.5CM/< UNCLASSIF J3490 [facility] IED DRUGS [address] [facility] INC RADEX 69262 JOEL RAMÓN ELBOW 2 MEDICAL FRA COMPLETE SERV MINIMUM 3 FOUNDATIO VIEWS THERAPEUT 00663 [employer] MEADOWADOP IC PX 1/> 2 W W AREAS REGIONAL REGIONAL EACH 15 MEDICAL MEDICAL MIN EXERCISES PHYSICAL 78573 [employer] MEADOWVIE THERAPY 2 W W EVALUATIO [place] [address] COMPA CHATMAN MONTEGGIA 2 BONIFACIO FRACTURE DISLOCATI ON ELBOW DBRDMT 96499 COMPA CHATMAN FX&/DISLC 2 BONIFACIO SUBQ T/M/F BONE RADEX 78341 [place] SHASHI KEVIN ELBOW 2 MEDICAL COMPLETE SERV MINIMUM 3 [place] [address] COMPA CHATMAN RADIAL 2 BONIFACIO HEAD/NECK FRACTURE OPEN 18622 CHATMAN COMPA TREATMENT 2 BONIFACIO ULNAR FRACTURE PROXIMAL END ANES 61669 [place] ZAYRA PIE OPEN/SURG 2 MEDICAL SERV ARTHROSCO FOUNDATIO PIC ELBOW PROC NOS RADEX 08458 [place] SUZIE ELBOW 2 MEDICAL JOANNA COMPLETE SERV MINIMUM [address] UPPER [address] [place] UNIQUE EXTREMITY 2 MEDICAL ANNAMARIE W/O SERV CONTRAST [facility]OUND[facility] MATERIAL ANES 55865 [place] REBEL TIFFANI ARTHRS/EN 2 MEDICAL DSCPY SERV DSTL FOUND[facility] RADIUS ULNA/WRIS T/HAND RADEX 95281 JOEL MUNOZ ELBOW 2 MEDICAL BAR COMPLETE SERV MINIMUM 3 FOUNDATIO VIEWS N DBRDMT 97666 COMPA CHATMAN FX&/DISLC 2 BONIFACIO SUBQ T/M/F BONE GROUND A0425 MALTESE MALTESE MILEAGE 2 AMBULETTE AMBULETTE PER AND AND STATUTE AMBUL AMBUL MILE APPLICATI 95654 [facility] MEJIA ON LONG 2 EMERGENCY ANITA ARM SERVICES SPLINT SHOULDER HAND RADEX 62691 JOEL MUNOZ HUMERUS 2 MEDICAL BAR MINIMUM 2 SERV VIEWS FOUNDATIO N RADEX 26991 [facility]KO CROUCH FOREARM 2 2 [facility] VIEWS RADEX 18703 MIKO CROUCH ELBOW 2 2 [facility] VIEWS Encounters Encounter Start End Date Code Location Performer Type Date OFFICE 81669 [facility] HUGO SAM 5 5 PHYSICIAN DANNI T VISIT S GROUP 15 MINUTES [facility]OSPITAL [facility] [address] [facility] - 5 5 [facility] 5 5 [facility] 5 5 [facility] 24045 [place] USERY AND PREVENTIV 5 5 [facility] INTERNAL MEDICINE MED NEW PATIENT 40-64YRS EMERGENCY 69945 TIM AMADOR 5 5 PHYSICIAN OSCAR Ho [facility] VISIT HIGH/URGE NT SEVERITY EMERGENCY 87696 TIM Chu 5 5 PHYSICIAN BOB Ho [facility] T VISIT HIGH/URGE NT SEVERITY OFFICE 86427 [facility] FUENTESEN 5 5 [facility] T VISIT INC 10 MINUTES [facility] - 5 5 [facility] 42844 BINH SULLIVAN 5 5 [facility]NA [facility] VISIT MODERATE SEVERITY EMERGENCY 33960 [facility] 5 5 [facility] VIS[facility] LOW/MODER SEVERITY [facility] - [facility] MEDICAL EMERGENCY 75292 JOEL WILLIS JR DEPT 2 2 MEDICAL KIRSTEN VISIT SERV HIGH FOUNDATIO SEVERITY& THREAT FUNJ
--- OUTSIDE RECORDS SUMMARY | 2016-12-22 06:27 | External Medical Summary Rpt ---
Demographics Preferred Language Congolese Marital Status Unknown Confucianism Affiliation Unknown Race Unknown Ethnic Group Unknown Author Author , PHUONG BACA Address Unknown Phone Immunization Unable to retrieve immunization data due to connection failure with Immunization Registry. Please try again later.
--- OUTSIDE RECORDS SUMMARY | 2016-12-22 06:27 | External Medical Summary Rpt ---
Author Author PHUONG Warner, PHUONG Warner Organization [employer] Address Unknown Phone Unavailable
--- OUTSIDE RECORDS SUMMARY | 2016-12-22 06:27 | External Medical Summary Rpt ---
Demographics Preferred Language Thai Marital Status Unknown Mormon Affiliation Unknown Race Unknown Ethnic Group Unknown Author Author , PHUONG BACA Address Unknown Phone Immunization Unable to retrieve immunization data due to connection failure with Immunization Registry. Please try again later.
== END 2016-11-29 18:34 | disposition home or self-care (01) ==
LOC: ER 16:22
PROC: 0HQ1XZZ Repair Face Skin, External Approach (ICD-10-PCS; principal; 2016-11-29)
DX: S01.81XA Laceration without foreign body of other part of head, initial encounter (principal); W20.8XXA Other cause of strike by thrown, projected or falling object, initial encounter; Y92.9 Unspecified place or not applicable; F17.210 Nicotine dependence, cigarettes, uncomplicated